=== PATIENT | female | born 1985 | race Caucasian/White ===

== ENCOUNTER 2018-08-23 19:42 | Emergency (ER) | payer MEDICAID ==
[~2018-08-23] VITALS: Ht 144.8 cm; Wt 56.0 kg
[2018-08-23 20:13] VITALS: Ht 144.8 cm; Wt 56.0 kg
--- NOTE | 2018-08-24 01:16 | ERD ---
ER Documentation Chief Complaint Chief Complaint AP VS PELVIC PAIN WITH VAGINAL SPOTTING X TODAY, 7 WKS PREG HPI This is a 32-year-old G4, P3 female at approximately 7 weeks gestation presents to the ED complaining of left-sided pelvic pain with vaginal spotting x1 day. Patient denies any dizziness, nausea, vomiting, fevers, chills. She states her last mental cycle was July 06, 2018. She is being followed by her CIVIL RIGHTS ATTORNEY at [facility]. She has an appointment with her CIVIL RIGHTS ATTORNEY next week. Patient otherwise feels fine has no other complaints. ROS All systems reviewed and are negative except as per history of present illness. Allergies Allergies: Coded Allergies: No Known Allergy (Verified , 05/26/11) PMhx/Soc Medical and Surgical Hx: pt denies Medical Hx, pt denies Surgical Hx History of Surgery: No Anesthesia Reaction: No Hx Neurological Disorder: No Hx Respiratory Disorders: No Hx Cardiac Disorders: No Hx Psychiatric Problems: No Hx Miscellaneous Medical Probl: No Hx Alcohol Use: No Hx Substance Use: No Hx Tobacco Use: No Smoking Status: Never smoker Physical Exam Vitals Vital Signs Date Temp Pulse Resp B/P (MAP) Pulse Ox O2 O2 Flow FiO2 Time Delivery Rate 08/23/18 98.0 66 16 106/58 100 20:13 (74) Physical Exam Const: No acute distress Head: Atraumatic Eyes: Normal Conjunctiva ENT: Normal External Ears, Nose and Mouth. Neck: Full range of motion. No meningismus. Resp: Clear to auscultation bilaterally Cardio: Regular rate and rhythm, no murmurs Abd: Soft, non tender, non distended. Normal bowel sounds Skin: No petechiae or rashes Back: No midline or flank tenderness Ext: No cyanosis, or edema Neur: Awake and alert Psych: Normal Mood and Affect Result Diagram: 08/23/18 2321 Results 24 hrs Laboratory Tests Test 08/23/18 23:21 White Blood Count 7.9 10^3/ul Red Blood Count 4.26 10^6/ul Hemoglobin 12.4 g/dl Hematocrit 37.9 % Mean Corpuscular Volume 89.0 fl Mean Corpuscular Hemoglobin 29.1 pg Mean Corpuscular Hemoglobin Concent 32.7 g/dl Red Cell Distribution Width 13.4 % Platelet Count 212 10^3/UL Mean Platelet Volume 9.5 fl Immature Granulocytes % 0.400 % Neutrophils % 51.6 % Lymphocytes % 36.7 % Monocytes % 8.0 % Eosinophils % 2.3 % Basophils % 1.0 % Nucleated Red Blood Cells % 0.0 /100WBC Immature Granulocytes # 0.030 10^3/ul Neutrophils # 4.1 10^3/ul Lymphocytes # 2.9 10^3/ul Monocytes # 0.6 10^3/ul Eosinophils # 0.2 10^3/ul Basophils # 0.1 10^3/ul Nucleated Red Blood Cells # 0.0 10^3/ul Urine Color YELLOW Urine Clarity SLIGHTLY CLOUDY Urine pH 6.0 Urine Specific [place] 1.012 Urine Ketones NEGATIVE mg/dL Urine Nitrite NEGATIVE mg/dL Urine Bilirubin NEGATIVE mg/dL Urine Urobilinogen NEGATIVE mg/dL Urine Leukocyte Esterase 1+ Quynh/ul Urine Microscopic RBC 1 /HPF Urine Microscopic WBC 4 /HPF Urine Squamous Epithelial Cells FEW /HPF Urine Bacteria FEW /HPF Urine Hemoglobin 1+ mg/dL Urine Glucose NEGATIVE mg/dL Urine Total Protein NEGATIVE mg/dl Beta HCG, Quantitative 513293.0 mIU/ml Procedures/MDM LABS CBC: no e/o of systemic infection or severe anemia Urine: no e/o acute infection or hematuria beta hc DIAGNOSTIC IMAGING: OCEDURE: US Pelvis. CLINICAL INDICATION: Vaginal Bleed () TECHNIQUE: Multiple sonographic images of the pelvis were obtained utilizing a transabdominal and endovaginal technique. The images were reviewed on a PACS workstation. COMPARISON: None. FINDINGS: The uterus is normal in size, morphology, and echogenicity. Intrauterine gestational sac is identified with pole. Winthrop rump length measures 9 mm, corresponding to an estimated gestational age of 6 weeks and 6 days. Estimated gestational age by clinical dating is 7 weeks and 1 day. heart motion is detected with M-mode sonography, with a rate of 142 beats per minute. No free fluid. The right ovary is not visualized. No adnexal mass identified. The left ovary has a normal echotexture and measures 3.2 cm in length. Corpus luteum is noted. No mass or perfusion abnormality. No left sided adnexal mass. IMPRESSION: Single live intrauterine , with an estimated gestational age of 6 weeks and 6 days, measured by crown rump length. MEDICAL DECISION MAKIN-year-old G4, P3 female presents with vaginal bleeding in first trimester. Labs without any signs of infection, dehydration or significant anemia. Her serum HCG was [id number]. US showed a single live IUP at 6 weeks gestation without any findings to suggest ectopic . Her vital signs are normal. Discussed with pt regarding differential diagnosis of ectopic , early and complete AB. She was given a copy of her results and told to follow up with injection molding machine offbearer in 48 hours for repeat HCG and US. Strict return precautions given. PRESCRIPTIONS: None SPECIALIST FOLLOW UP RECOMMENDED: None Patient has been advised to follow up with primary care in 1-2 days. Departure Diagnosis: Primary Impression: Threatened Condition: Stable Patient Instructions: Vaginal Bleed in Referrals: [facility] YOU HAVE RECEIVED A MEDICAL SCREENING EXAM AND THE RESULTS INDICATE THAT YOU DO NOT HAVE A CONDITION THAT REQUIRES URGENT TREATMENT IN THE EMERGENCY DEPARTMENT. FURTHER EVALUATION AND TREATMENT OF YOUR CONDITION CAN WAIT UNTIL YOU ARE SEEN IN YOUR DOCTORS OFFICE WITHIN THE NEXT 1-2 DAYS. IT IS YOUR RESPONSIBILITY TO MAKE AN APPOINTMENT FOR FOLOW-UP CARE. IF YOU HAVE A PRIMARY DOCTOR --you should call your primary doctor and schedule an appointment IF YOU DO NOT HAVE A PRIMARY DOCTOR YOU CAN CALL OUR PHYSICIAN REFERRAL HOTLINE AT IF YOU CAN NOT AFFORD TO SEE A PHYSICIAN YOU CAN CHOSE FROM THE FOLLOWING [facility] [address] [facility] [facility] [address] [facility] [address] [facility] [address] [facility]. [facility] [address] [facility]. [facility]. [address] [facility]. [facility] YOU HAVE RECEIVED A MEDICAL SCREENING EXAM AND THE RESULTS INDICATE THAT YOU DO NOT HAVE A CONDITION THAT REQUIRES URGENT TREATMENT IN THE EMERGENCY DEPARTMENT. FURTHER EVALUATION AND TREATMENT OF YOUR CONDITION CAN WAIT UNTIL YOU ARE SEEN IN YOUR DOCTORS OFFICE WITHIN THE NEXT 1-2 DAYS. IT IS YOUR RESPONSIBILITY TO MAKE AN APPOINTMENT FOR FOLOW-UP CARE. IF YOU HAVE A PRIMARY DOCTOR --you should call your primary doctor and schedule and appointment IF YOU DO NOT HAVE A PRIMARY DOCTOR YOU CAN CALL OUR PHYSICIAN REFERRAL HOTLINE AT . IF YOU CAN NOT AFFORD TO SEE A PHYSICIAN YOU CAN CHOSE FROM THE FOLLOWING [facility] INSTITUTIONS: [facility] [id number] [place] [address] [address] [place] [address] [facility] [address] [place] [address] [facility] URGENT CARE/SPECIALTIES Additional Instructions: Paciente aconseja volver a Departamento de urgencias inmediatamente para sntomas nuevos o que empeoran . Paciente aconseja posteriores con el PCP en 1-2 rausch. Si el paciente no tiene ninguna de atencin primaria pueden seguir con [address] [address] o [facility] [address] [place] [id number] THALIA PERALTA PA-C August 24, 2018 01:16
[2018-08-24 01:19] VITALS: BP 115/55; PULSE 78; RESP 18
== END 2018-08-24 01:20 | disposition home or self-care (01) ==
LOC: FTE 19:42
DX: O20.0 Threatened abortion (principal); Z3A.01 Less than 8 weeks gestation of pregnancy
CPT/HCPCS: 36415; 76801; 81001; 84702; 85025; 86900; 86901; Z7502

== ENCOUNTER 2018-12-05 16:58 | Inpatient (IN) | payer MEDICAID ==
[~2018-12-05] VITALS: Ht 172.7 cm; Wt 52.4 kg
[2018-12-05 21:00] VITALS: BP 100/57; PULSE 74; RESP 18; Ht 172.7 cm; Wt 52.4 kg
[2018-12-05] MEDS ORDERED: LACTATED RINGER'S 1,000 ML IV SCH (23:39)
[2018-12-06] MEDS ORDERED: CARBOPROST 250 MCG INJ IM PRN ×2
[2018-12-06] MEDS ORDERED: LIDOCAINE 1% (MPF) 30 ML INJ INJ PRN ×2
[2018-12-06] MEDS ORDERED: BUTORPHANOL 2 MG INJ IV PRN
[2018-12-06] MEDS ORDERED: OXYTOCIN 30 UNITS/LR 500 ML IV SCH ×4
[2018-12-06] MEDS ORDERED: OXYTOCIN 30 UNITS/LR 500 ML IV PRN ×2
[2018-12-06] MEDS ORDERED: MISOPROSTOL 200 MCG TAB PR PRN ×2
[2018-12-06] MEDS ORDERED: METHYLERGONOVINE 0.2 MG INJ IM PRN ×2
[2018-12-06] MEDS ORDERED: IBUPROFEN 600 MG TAB PO PRN ×2
[2018-12-06] MEDS: LACTATED RINGER'S 1,000 ML IV SCH ×4 (00:29→22:32)
[2018-12-06] MEDS: BUTORPHANOL 2 MG INJ IV PRN ×2 (08:07→13:23)
[2018-12-06] MEDS ORDERED: CEFAZOLIN 2 GM/50 ML (PMX) 50 ML IVPB ONE ×2 (13:10→19:30)
[2018-12-06 18:59] VITALS: BP 97/52; PULSE 75; RESP 16
[2018-12-07] MEDS ORDERED: CEFAZOLIN 2 GM/50 ML (PMX) 50 ML IVPB ONE (01:30)
[2018-12-07 02:00] VITALS: BP 99/46; PULSE 71; RESP 18
[2018-12-07] MEDS: LACTATED RINGER'S 1,000 ML IV SCH ×3 (06:44→23:23)
[2018-12-07 07:49] VITALS: BP 94/53; PULSE 65; RESP 16
[2018-12-07 14:34] VITALS: BP 96/51; PULSE 63; RESP 16
[2018-12-07 19:33] VITALS: BP 98/53; PULSE 78; RESP 18
[2018-12-08 02:00] VITALS: BP 90/49; PULSE 68; RESP 18
[2018-12-08] MEDS: LACTATED RINGER'S 1,000 ML IV SCH ×2 (07:05→15:39)
[2018-12-08 07:38] VITALS: BP 100/59; PULSE 61; RESP 15
[2018-12-08 15:07] VITALS: BP 90/53; PULSE 74; RESP 16
== END 2018-12-08 17:37 | disposition home or self-care (01) | DRG 807 ==
LOC: OBT 16:58 → L-D 17:00 → OBT 23:05 → L-D 23:05 → 2NE 12-06 18:45
PROVIDERS: ADMIT Obstetrics & Gynecology; ATTEND Obstetrics & Gynecology
PROC: 10E0XZZ Delivery of Products of Conception, External Approach (ICD-10-PCS; principal; 2018-12-06)
DX: O60.12X0 Preterm labor second trimester with preterm delivery second trimester, not applicable or unspecified (principal); Z37.1 Single stillbirth; Z3A.22 22 weeks gestation of pregnancy
CPT/HCPCS: 76815; 81001; 84112; 85025; 85610; 85730; 86592; 86850; 86900; 86901; 87340; 88307; G0463; J0595; J0690; J2590; J7120